=== PATIENT | female | born 1960 | race Caucasian/White ===

== ENCOUNTER → 2016-10-22 | Outpatient (CLI) | payer OTHER ==
[~2016-10-22] MED LIST: FLORASTOR250 M1 PO; LASIX PO; LATUDA PO; LIALDA1.2 G PO; LOPRESSOR PO; NEURONTIN600 MG PO; NORVASC10 MG PO; PEPCID40 MG PO; PERCOCET 10/31 UDTA1 PO; REQUIP3 MG PO; WELLBUTRIN SR150 MG PO; ZOLOFT100 MG PO
== END | disposition home or self-care (01) ==
LOC: CSSDAY 12:32
DX: M81.0 Age-related osteoporosis without current pathological fracture (principal); T50.905S Adverse effect of unspecified drugs, medicaments and biological substances, sequela; Z79.899 Other long term (current) drug therapy
CPT/HCPCS: 36415; 82310; 96372; J0897